=== PATIENT | female | born 1945 ===

== ENCOUNTER 2017-06-16 07:24 | Day surgery (SDC) | payer MEDICARE ==
[2017-06-08 10:08] VITALS: BMI 27.3
[2017-06-16] MEDS ORDERED: Propofol 10 mg/ml Inj (20 ML) ONE ×2 (08:49→09:22)
[2017-06-16] MEDS ORDERED: Lidocaine 1% Inj (20ml) ONE (08:50)
[2017-06-16] MEDS ORDERED: Sodium Chloride 0.9% 1,000 ML IV SCH (09:45)
[2017-06-16 11:03] VITALS: BP 141/73; PULSE 52; RESP 17; TEMP 97.8; O2SAT 99
== END 2017-06-16 10:58 | disposition home or self-care (01) ==
LOC: ENDO 07:24
PROVIDERS: ATTEND Specialist
DX: Z12.11 Encounter for screening for malignant neoplasm of colon (principal); D12.4 Benign neoplasm of descending colon; D12.3 Benign neoplasm of transverse colon; K57.30 Diverticulosis of large intestine without perforation or abscess without bleeding; K64.8 Other hemorrhoids
CPT/HCPCS: 45380; 45385; 88305; J2704; J7040 ×2

== ENCOUNTER 2019-01-12 09:45 | Outpatient (CLI) | payer MEDICARE | END 2019-01-12 09:46 | disposition home or self-care (01) | LOC: RAD 09:45 ==